=== PATIENT | female | born 1970 ===

== ENCOUNTER → 2018-11-13 | Outpatient (CLI) | payer BC ==
[~2018-11-13] MED LIST: ADIPEX; Armour Thyroid15 MG PO; BUPR150ER; BUPR150T2; CEFA250; ESTRADIOL1 MG PO; HYDMOR2 PO; LEVSOD150; LEVSOD200; ONDA4ODT; ONDA8ODT MM; OXYACE5T; OXYACE5T PO; PROGESTERONE200 MG PO; PROM25 PO
[2018-11-13 19:09] LABS: G. vaginalis (DNA Probe) Positive (NEGATIVE); T. vaginalis (DNA Probe) Negative (NEGATIVE)
[2018-11-13 19:10] LABS: Candida species (DNA Probe) Positive (NEGATIVE)
== END ==
LOC: LAB SHORT 15:45 → LAB 15:45
PROVIDERS: Nurse Practitioner
DX: N77.1 Vaginitis, vulvitis and vulvovaginitis in diseases classified elsewhere (principal)
CPT/HCPCS: 87480; 87510; 87660

== ENCOUNTER → 2019-01-11 | Outpatient (CLI) | payer BC ==
[2019-01-12 10:36] LABS: Candida species (DNA Probe) Positive (NEGATIVE); G. vaginalis (DNA Probe) Positive (NEGATIVE); T. vaginalis (DNA Probe) Negative (NEGATIVE)
== END | disposition home or self-care (01) ==
LOC: LAB SHORT 12:35 → LAB 12:35
PROVIDERS: Advanced Practice Midwife
DX: N89.8 Other specified noninflammatory disorders of vagina (principal)
CPT/HCPCS: 87480; 87510; 87660

== ENCOUNTER 2020-09-28 06:14 | Day surgery (SDC) | payer BC ==
[~2020-09-28] VITALS: Ht 154.9 cm; Wt 59.9 kg
[~2020-09-28 06:14] MED LIST changes: +LEVOTHYROXINE200 MCG PO
[2020-09-28] MEDS ORDERED: LEVSOD75 PO (06:57)
[2020-09-28] MEDS ORDERED: THYR60 PO (06:58)
--- NOTE | 2020-09-28 08:00 | NUR ---
09/28/20 0800 Dylon Mcclendon 0.15ML OF EPI 1MG/ML ADDED TO 30ML OF BUPIVICAINE 0.5% TO CREATE A LOCAL OF BUPIVICAINE 0.5% WITH EPI, 1:200,000.
--- NOTE | 2020-09-28 10:29 | NUR ---
09/28/20 1029 Ewa Silva 1020 PT STATES PAIN IS TOLERABLE AND READY TO GO HOME.
== END 2020-09-28 10:29 | disposition home or self-care (01) ==
LOC: ORSCSDS 06:14
PROVIDERS: Podiatrist Foot & Ankle Surgery
PROC: 0SGH04Z Fusion of Right Tarsal Joint with Internal Fixation Device, Open Approach (ICD-10-PCS; principal; 2020-09-28 07:30)
PROC: 0QSQ04Z Reposition Right Toe Phalanx with Internal Fixation Device, Open Approach (ICD-10-PCS; principal; 2020-09-28 07:30)
DX: M20.11 Hallux valgus (acquired), right foot (principal); E03.9 Hypothyroidism, unspecified; Z79.899 Other long term (current) drug therapy; Z87.891 Personal history of nicotine dependence
CPT/HCPCS: A9270; C1713; C1776; J0171; J0690; J1100; J2250; J2405; J2704; J3010; J7120